=== PATIENT | female | born 1960 | race Caucasian/White ===

== ENCOUNTER 2018-11-03 17:14 | Inpatient (IN) | payer MEDICARE ==
[2018-11-03 18:44] LABS: Amphetamine Screen,Urine Not Detected (NotDetected); Barbiturate Screen,Urine Not Detected (NotDetected); Benzodiazepines Screen,Urine Not Detected (NotDetected); Cocaine Screen,Urine Not Detected (NotDetected); Methadone Screen, Urine Not Detected (NotDetected); Opiate Screen,Urine Not Detected (NotDetected); Oxycodone Screen, Urine Not Detected (NotDetected); Phencyclidine Screen,Urine Not Detected (NotDetected); Tricyclic Antidepressant,Urine Not Detected (NotDetected); Urn Cannabinoid Scrn Not Detected (NotDetected)
--- NOTE | 2018-11-03 19:30 | ED ---
Psych HPI - General Chief Complaint: Psychiatric Symptoms Stated Complaint: Mental Health Source: patient, RN notes reviewed, old records reviewed Mode of arrival: ambulatory - History of Present Illness Initial Comments: This is a 50-year-old female the ER for evaluation. Patient presents today for evaluation regards to mental health evaluation. Patient has been started new medication with no help. Patient has history with sudden going to GI also increased recent life stressors. Does admit to increased depression and suicidal thoughts MD Complaint: suicidal ideation, feels depressed -: unknown Associated Psychiatric Symptoms: depression, suicidal ideation History of same: Yes Quality: getting worse Improves With: none Worsens With: none Context: significant life stressor Associated Symptoms: denies other symptoms Treatments Prior to Arrival: placed on mental health hold If Self Harm: admits thoughts of self harm - Related Data Home Medications Medication Instructions Recorded Confirmed Ibuprofen [Motrin Ib] 600 mg PO BID 11/03/18 11/03/18 Multivitamins, Thera [Multivitamin 1 tab PO DAILY 11/03/18 11/03/18 (formulary)] Paliperidone [Invega] 3 mg PO DAILY 11/03/18 11/03/18 Sertraline [Zoloft] 100 mg PO BID 11/03/18 11/03/18 busPIRone HCL 7.5 mg PO BID 11/03/18 11/03/18 clonazePAM [KlonoPIN] 0.5 mg PO BID 11/03/18 11/03/18 lamoTRIgine [LaMICtal] 100 mg PO BID 11/03/18 11/03/18 Allergies Allergy/AdvReac Type Severity Reaction Status Date / Time No Known Allergies Allergy Verified 11/03/18 22:24 Review of Systems ROS Statement: Those systems with pertinent positive or pertinent negative responses have been documented in the HPI. ROS Other: All systems not noted in ROS Statement are negative. Past Medical History Past Medical History: No Reported History History of Any Multi-Drug Resistant Organisms: None Reported Past Surgical History: Orthopedic Surgery Additional Past Surgical History / Comment(s): left leg with hardware, carpal tunnel Past Psychological History: Bipolar Smoking Status: Never smoker Past Alcohol Use History: None Reported Past Drug Use History: None Reported - Past Family History Father Family Medical History: No Reported History Mother Family Medical History: Congestive Heart Failure (CHF), COPD, Pneumonia, Renal Disease, Respiratory Disorder, Thyroid Disorder General Exam Limitations: no limitations General appearance: alert, in no apparent distress Head exam: Present: atraumatic, normocephalic, normal inspection Eye exam: Present: normal appearance, PERRL, EOMI. Absent: scleral icterus, conjunctival injection, periorbital swelling ENT exam: Present: normal exam, mucous membranes moist Neck exam: Present: normal inspection. Absent: tenderness, meningismus, lymphadenopathy Respiratory exam: Present: normal lung sounds bilaterally. Absent: respiratory distress, wheezes, rales, rhonchi, stridor Cardiovascular Exam: Present: regular rate, normal rhythm, normal heart sounds. Absent: systolic murmur, diastolic murmur, rubs, gallop, clicks GI/Abdominal exam: Present: soft, normal bowel sounds. Absent: distended, tenderness, guarding, rebound, rigid Extremities exam: Present: normal inspection, full ROM, normal capillary refill. Absent: tenderness, pedal edema, joint swelling, calf tenderness Back exam: Present: normal inspection Neurological exam: Present: alert, oriented X3, CN II-XII intact Psychiatric exam: Present: normal affect, normal mood Skin exam: Present: warm, dry, intact, normal color. Absent: rash Course Vital Signs 11/03/18 11/03/18 17:21 21:40 Temperature 98.3 F 97.7 F Pulse Rate 65 78 Respiratory 18 18 Rate Blood Pressure 122/90 143/80 O2 Sat by Pulse 97 98 Oximetry Medical Decision Making - Medical Decision Making 50 female the ER for evaluation sooner by psychiatric treatment here in the ER. Patient be admitted for psychiatric evaluation and treatment - Lab Data Result diagrams: 11/04/18 08:14 11/04/18 08:14 Lab Results 11/03/18 Range/Units 18:10 Urine Opiates Screen Not Detected (NotDetected) Ur Oxycodone Screen Not Detected (NotDetected) Urine Methadone Screen Not Detected (NotDetected) Ur Propoxyphene Screen Not Detected (NotDetected) Ur Barbiturates Screen Not Detected (NotDetected) U Tricyclic Antidepress Not Detected (NotDetected) Ur Phencyclidine Scrn Not Detected (NotDetected) Ur Amphetamines Screen Not Detected (NotDetected) U Methamphetamines Scrn Not Detected (NotDetected) U Benzodiazepines Scrn Not Detected (NotDetected) Urine Cocaine Screen Not Detected (NotDetected) U Marijuana (THC) Screen Not Detected (NotDetected) Disposition Clinical Impression: Bipolar 1 disorder, depressed, Suicidal ideation, Depression Disposition: TRANSFER TO PSYCH HOSP/UNIT Condition: Fair Is patient prescribed a controlled substance at d/c from ED?: No
[2018-11-03] MEDS ORDERED: clonazePAM 0.5 MG TAB PO STA (20:40)
[2018-11-03 22:12] VITALS: BMI 25.7
[2018-11-03] MEDS ORDERED: ZIPRASIDONE 20 MG VIAL IM PRN (22:58)
[2018-11-03] MEDS ORDERED: MAG HYDROX/AL HYDROX/SIMETH 30 ML CUP PO PRN (22:58)
[2018-11-03] MEDS ORDERED: MAGNESIUM HYDROXIDE 2,400 MG/10 ML CUP PO PRN (22:58)
[2018-11-03] MEDS: IBUPROFEN 600 MG TAB PO SCH (23:31)
[2018-11-03] MEDS: SERTRALINE 100 MG TAB PO SCH (23:32)
[2018-11-03] MEDS: PALIPERIDONE 6 MG TAB.ER.24 PO SCH (23:32)
[2018-11-03] MEDS: lamoTRIgine 100 MG TAB PO SCH (23:32)
[2018-11-03] MEDS: clonazePAM 0.5 MG TAB PO SCH (23:35)
[2018-11-04] MEDS: SERTRALINE 100 MG TAB PO SCH ×2 (00:07→20:56)
[2018-11-04] MEDS: lamoTRIgine 100 MG TAB PO SCH ×3 (00:07→20:56)
[2018-11-04] MEDS: IBUPROFEN 600 MG TAB PO SCH ×3 (00:08→20:57)
[2018-11-04] MEDS ORDERED: INFLUENZA VACCINE (6 MOS+) 60 MCG/0.5 ML SYRINGE IM ONE (09:00)
[2018-11-04] MEDS: MULTIVITAMINS, THERA 1 EACH TAB PO SCH (09:03)
[2018-11-04] MEDS: clonazePAM 0.5 MG TAB PO SCH ×2 (09:03→20:57)
[2018-11-04 09:13] LABS: Basophils # (A) 0.1 k/uL (0-0.2); Basophils % (A) 1 %; Eosinophils # (A) 0.2 k/uL (0-0.7); Eosinophils % (A) 4 %; HCT 39.5 % (34.0-46.0); HGB 12.6 gm/dL (11.4-16.0); Lymphocytes % (A) 44 %; MCH 27.9 pg (25.0-35.0); MCHC 31.9 g/dL (31.0-37.0); MCV 87.6 fL (80.0-100.0); Mean Platelet Volume 6.5; Monocytes # (A) 0.3 k/uL (0-1.0); Monocytes % (A) 7 %; Neutrophils # (A) 1.9 k/uL (1.3-7.7); Neutrophils % (A) 42 %; Platelet Count 277 k/uL (150-450); RBC 4.51 m/uL (3.80-5.40); RDW 13.2 % (11.5-15.5); WBC 4.6 k/uL (3.8-10.6)
[2018-11-04 09:26] LABS: Albumin 3.6 g/dL (3.5-5.0); Bilirubin,Unconjugated 0.5 mg/dL (0.0-1.1); Calcium 9.4 mg/dL (8.4-10.2); Potassium 4.2 mmol/L (3.5-5.1); Total Bilirubin 0.5 mg/dL (0.2-1.3); Total Protein 6.3 g/dL (6.3-8.2)
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
[2018-11-04] MEDS: ACETAMINOPHEN TAB 325 MG TAB PO PRN (12:15)
[2018-11-04 20:10] LABS: Hemoglobin A1C 5.5 % (4.0-6.0)
--- NOTE | 2018-11-04 20:18 | P.MDCNMH ---
History of Present Illness H&P Date: 11/04/18 Chief Complaint: medical evaluation 58 year old female with no significant past medical history, patient with history of Bipolar disorder. Patient presented to the hospital due to uncontrollable urges to cut herself, while denying any homicidal or suicidal ideation, . she denies any physical complaints at this time, denies any headache, fever, chills, nausea, vomiting, fever or chills. denies any chest pain or trouble breathing , denies any abd pain. she report overwhelming family stress , with sick mother, and son going back to nursing home after failing his probation terms Review of Systems Pertinent positives as noted in HPI. All other systems were reviewed and are negative Past Medical History Past Medical History: No Reported History History of Any Multi-Drug Resistant Organisms: None Reported Past Surgical History: Orthopedic Surgery, Tubal Ligation Additional Past Surgical History / Comment(s): left leg with hardware, carpal tunnel Past Anesthesia/Blood Transfusion Reactions: No Reported Reaction Past Psychological History: Anxiety, Bipolar, PTSD Smoking Status: Never smoker Past Alcohol Use History: None Reported Past Drug Use History: None Reported - Past Family History Father Family Medical History: No Reported History Mother Family Medical History: Congestive Heart Failure (CHF), COPD, Pneumonia, Renal Disease, Respiratory Disorder, Thyroid Disorder Medications and Allergies Home Medications Medication Instructions Recorded Confirmed Type Ibuprofen [Motrin Ib] 600 mg PO BID 11/03/18 11/03/18 History Multivitamins, Thera [Multivitamin 1 tab PO DAILY 11/03/18 11/03/18 History (formulary)] Paliperidone [Invega] 3 mg PO DAILY 11/03/18 11/03/18 History Sertraline [Zoloft] 100 mg PO BID 11/03/18 11/03/18 History busPIRone HCL 7.5 mg PO BID 11/03/18 11/03/18 History clonazePAM [KlonoPIN] 0.5 mg PO BID 11/03/18 11/03/18 History lamoTRIgine [LaMICtal] 100 mg PO BID 11/03/18 11/03/18 History Allergies Allergy/AdvReac Type Severity Reaction Status Date / Time No Known Allergies Allergy Verified 11/03/18 22:24 Physical Exam Vitals: Vital Signs Temp Pulse Pulse Pulse Resp BP BP 11/04/18 06:09 97.6 F 51 L 14 111/57 11/03/18 21:48 96.9 F L 55 L 16 11/03/18 21:40 97.7 F 78 18 143/80 11/03/18 17:21 98.3 F 65 18 122/90 BP Pulse Ox 11/04/18 06:09 11/03/18 21:48 128/88 98 11/03/18 21:40 98 11/03/18 17:21 97 Intake and Output 11/03/18 11/04/18 11/04/18 22:59 06:59 14:59 Other: Weight 63.957 kg Constitutional: No acute distress, conversant, pleasant Eyes: Anicteric sclerae, moist conjunctiva, no lid-lag Pupils equal round reactive to light ENMT: NC/AT Oropharynx clear, no erythema, exudates Neck: Supple, FROM, no masses, or JVD No carotid bruits No thyromegaly Lungs: Clear to auscultation Clear to percussion Normal respiratory effort, no accessory muscle use Cardiovascular: Heart regular in rate and rhythm, No murmurs, gallops, or rubs No peripheral edema Abdominal: Soft Nontender, no guarding, rebound or rigidity Abdomen moving with respiration Normoactive bowel sounds No hepatomegaly, No splenomegaly No palpable mass No abdominal wall hernia noted Skin: old scars of skin cutting baeza over her right am Normal temperature, tone, texture, turgor No induration No subcutaneous nodules No rash, lesions No ulcers Extremities: No digital cyanosis No clubbing Pedal pulses intact and symmetrical Radial pulses intact and symmetrical No calf tenderness Psychiatric: Alert and oriented to person, place and time flat affect poor judgment Neuro Muscles Strength 5/5 in all 4 extremities Sensation to light touch grossly present throughout Cranial nerves II-XII grossly intact No focal sensory deficits Lymphatics: no palpable cervical or supraclavicular , or inguinal lymph nodes Cranial Nerve Examination - Cranial Nerves Cranial Nerve II- Optic: Intact Cranial Nerve III- Oculomotor: Intact Cranial Nerve IV- Trochlear: Intact Cranial Nerve V- Trigeminal: Intact Cranial Nerve - Abducens: Intact Cranial Nerve VII- Facial: Intact Cranial Nerve VIII- Auditory: Intact Cranial Nerve IX- Glossopharyngeal: Intact Cranial Nerve X- Vagus: Intact Cranial Nerve XI- Accessory: Intact Cranial Nerve XII- Hypoglossal: Intact Results CBC & Chem 7: 11/04/18 08:14 11/04/18 08:14 Assessment and Plan Assessment: 58 year old female with no significant medical history except for bipolar disorder. Presented the hospital due to uncontrollable symptoms and urges to cut herself seeking psychiatry evaluation and treatment. Currently denies any medical problems or physical complaints. Patient denies any homicidal or suicidal ideation Plan: Bipolar disorder currently uncontrolled urges with manic episode Treatment per psychiatry recommendations Blood work reflected hyperlipidemia with elevated LDL Recommending dietary modification and lifestyle modification Consider outpatient follow-up with PCP Low risk for DVT patient is ambulatory Otherwise labs unremarkable Thank you for allowing us to participate in the care of this patient. We will follow peripherally. Do not hesitate to contact us with questions. Someone can be reached from the [facility] hospitalist group at all hours of the day at [phone].
[2018-11-04] MEDS: PALIPERIDONE 6 MG TAB.ER.24 PO SCH (20:56)
[2018-11-05] MEDS: clonazePAM 0.5 MG TAB PO SCH ×2 (08:34→20:58)
[2018-11-05] MEDS: MULTIVITAMINS, THERA 1 EACH TAB PO SCH (08:34)
[2018-11-05] MEDS: lamoTRIgine 100 MG TAB PO SCH ×2 (08:34→20:55)
[2018-11-05] MEDS: IBUPROFEN 600 MG TAB PO SCH ×2 (08:34→20:53)
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
[2018-11-05] MEDS: ACETAMINOPHEN TAB 325 MG TAB PO PRN (13:40)
[2018-11-05] MEDS: SERTRALINE 100 MG TAB PO SCH (20:52)
[2018-11-05] MEDS: PALIPERIDONE 3 MG TAB.ER.24 PO SCH (20:55)
[2018-11-06] MEDS: IBUPROFEN 600 MG TAB PO SCH ×2 (08:50→20:50)
[2018-11-06] MEDS: lamoTRIgine 100 MG TAB PO SCH ×2 (08:52→20:50)
[2018-11-06] MEDS: clonazePAM 0.5 MG TAB PO SCH (09:59)
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
[2018-11-06] MEDS: ACETAMINOPHEN TAB 325 MG TAB PO PRN ×2 (11:41→23:08)
[2018-11-06] MEDS: MULTIVITAMINS, THERA 1 EACH TAB PO SCH (14:39)
[2018-11-06] MEDS: SERTRALINE 100 MG TAB PO SCH (20:50)
[2018-11-06] MEDS: PALIPERIDONE 3 MG TAB.ER.24 PO SCH (20:50)
[2018-11-07] MEDS: IBUPROFEN 600 MG TAB PO SCH ×2 (08:31→20:25)
[2018-11-07] MEDS: lamoTRIgine 100 MG TAB PO SCH ×2 (08:31→20:26)
[2018-11-07] MEDS: MULTIVITAMINS, THERA 1 EACH TAB PO SCH (08:31)
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
[2018-11-07] MEDS: ACETAMINOPHEN TAB 325 MG TAB PO PRN (17:24)
[2018-11-07] MEDS: PALIPERIDONE 3 MG TAB.ER.24 PO SCH (20:26)
[2018-11-07] MEDS: SERTRALINE 100 MG TAB PO SCH (20:26)
[2018-11-08] MEDS: lamoTRIgine 100 MG TAB PO SCH ×2 (09:15→20:19)
[2018-11-08] MEDS: IBUPROFEN 600 MG TAB PO SCH ×2 (09:15→20:19)
--- NOTE | 2018-11-08 11:54 | P.PN ---
Progress Note - Text Progress Note Date: 11/08/18 Interval history: Patient is seen in cross coverage today. She does not verbalize any significant psychotropic medication side effects. She does describe concern of possible weight gain of and they have. We talked about her continuing to monitor her weight. She does feel that she'll be ready for discharge on Saturday. She relates she was hoping to be able to be discharged today related to her mom having been hospitalized. She does acknowledge that her mood is doing better than when she was admitted to the hospital. Mental status exam: She is alert and cooperative with the interview. Her speech is fluent, not rapid or pressured. She does describe her mood overall is doing better. She denies any thoughts of harm to self or others. No evidence of psychosis or agitation. Plan: Patient be maintained on current psychotropic medication regimen. We'll continue to monitor medication side effects and monitor her ongoing response to treatment. We'll continue to cover this patient through the weekend.
[2018-11-08] MEDS: MULTIVITAMINS, THERA 1 EACH TAB PO SCH (12:38)
[2018-11-08] MEDS: PALIPERIDONE 3 MG TAB.ER.24 PO SCH (20:18)
[2018-11-08] MEDS: SERTRALINE 100 MG TAB PO SCH (20:18)
[2018-11-09] MEDS: lamoTRIgine 100 MG TAB PO SCH ×2 (08:20→20:28)
[2018-11-09] MEDS: IBUPROFEN 600 MG TAB PO SCH ×2 (08:20→20:27)
[2018-11-09] MEDS: MULTIVITAMINS, THERA 1 EACH TAB PO SCH (12:37)
--- NOTE | 2018-11-09 16:20 | P.PN ---
Progress Note - Text Progress Note Date: 11/09/18 Interval history: Patient is seen again in cross coverage today. She states that she's been feeling some mood swings the last day or so. She says that yesterday she had some thoughts of cutting on herself but was able to kick that thought out of her mind. She reports headache and possible decreased blood pressure as side effects of medication but relays that she has had a history of some low blood pressure. Mental status exam: She is alert and cooperative with the interview. Her speech is fluent, not rapid or pressured. Her thought processes are organized. Her mood she describes is fluctuating. She denies any current thoughts of harm to self or others. No evidence of active psychosis or agitation. Plan: Patient will be maintained on current psychotropic medication regimen. Continue to monitor for any medication side effects monitor her ongoing response to treatment.
[2018-11-09] MEDS: PALIPERIDONE 3 MG TAB.ER.24 PO SCH (20:28)
[2018-11-09] MEDS: SERTRALINE 100 MG TAB PO SCH (20:29)
[2018-11-10 06:45] VITALS: TEMP 97.6
[2018-11-10 07:03] VITALS: BP 107/64; PULSE 51; RESP 12
[2018-11-10] MEDS: IBUPROFEN 600 MG TAB PO SCH (08:55)
[2018-11-10] MEDS: lamoTRIgine 100 MG TAB PO SCH (08:55)
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
[2018-11-10] MEDS: MULTIVITAMINS, THERA 1 EACH TAB PO SCH (12:43)
== END 2018-11-10 14:50 | disposition home or self-care (01) | DRG 885 ==
LOC: EC 17:14 → 3MHU 21:16
PROVIDERS: ADMIT Psychiatry & Neurology Psychiatry; ATTEND Psychiatry & Neurology Psychiatry
DX: F31.64 Bipolar disorder, current episode mixed, severe, with psychotic features (principal); R45.851 Suicidal ideations; F10.21 Alcohol dependence, in remission; Z79.899 Other long term (current) drug therapy; Z82.49 Family history of ischemic heart disease and other diseases of the circulatory system; Z82.5 Family history of asthma and other chronic lower respiratory diseases; Z91.19 Patient's noncompliance with other medical treatment and regimen; Z84.1 Family history of disorders of kidney and ureter; Z83.49 Family history of other endocrine, nutritional and metabolic diseases; F43.10 Post-traumatic stress disorder, unspecified; Z91.5 Personal history of self-harm; Z79.1 Long term (current) use of non-steroidal anti-inflammatories (NSAID); R03.1 Nonspecific low blood-pressure reading
CPT/HCPCS: 80053; 80061; 80175; 80306; 82075; 82248; 83036; 84443; 85025; 90686; 99285